=== PATIENT | female | born 1965 | race Caucasian/White ===

== ENCOUNTER 2025-07-04 21:39 | Emergency (ER) | payer MEDICAID ==
[~2025-07-04] VITALS: Ht 165.1 cm; Wt 70.0 kg
[2025-07-04 21:41] VITALS: O2SAT 97
[2025-07-04 23:11] LABS: BASOPHILS % 0.6 % (0.0-2.0); EOSINOPHILS % 1.3 % (0.0-5.0); HEMATOCRIT. 28.2 % (36.0-48.0); HEMOGLOBIN. 9.4 g/dL (12.0-16.0); LYMPHOCYTES % 31.5 % (20.0-50.0); MEAN PLATELET VOLUME 8.6 fl (7.4-10.4); MONOCYTES % 4.2 % (2.0-8.0); NEUTROPHILS % 62.4 % (40.0-76.0); PLATELET 174 x1000/uL (130-400); RED BLOOD CELL COUNT 2.78 mill/uL (4.2-5.4); RED CELL DISTRIBUTION WIDTH 13.7 % (11.6-14.6)
[2025-07-04 23:21] LABS: CREATININE 3.0 mg/dL (0.6-1.0)
[2025-07-04 23:22] LABS: ETHANOL BLOOD 92 mg/dL (<10); UREA NITROGEN BLOOD 31 mg/dL (9-23)
[2025-07-04 23:23] LABS: ASPARTATE AMINOTRANSFERASE 24 IU/L (<34)
[2025-07-04 23:24] LABS: BILIRUBIN DIRECT < 0.1 mg/dL (<=3.0); BILIRUBIN TOTAL 0.2 mg/dL (0.1-1.0); PROTEIN TOTAL 5.8 g/dL (6.0-8.3); TROPONIN I HIGH SENSITIVITY 36 ng/L (3.0-34)
[2025-07-05] MEDS ORDERED: HYDROCODONE/ACETAMINOPHEN 5/325MG TABLET PO PRN (02:30)
[2025-07-05] MEDS ORDERED: ZOLPIDEM TARTRATE 5MG TABLET PO PRN (02:30)
[2025-07-05] MEDS ORDERED: MAGNESIUM/ALUMINUM HYDROXIDE/SIMETHICONE 30ML UDC PO PRN (02:30)
[2025-07-05] MEDS ORDERED: ONDANSETRON HCL 4MG/2ML INJ IV PRN (02:30)
[2025-07-05] MEDS ORDERED: ACETAMINOPHEN 325MG TABLET PO PRN (02:30)
[2025-07-05] MEDS ORDERED: CLONIDINE 0.1MG TABLET PO PRN (02:30)
[2025-07-05] MEDS: SODIUM CHLORIDE 0.9% 1,000 ML IV SCH (03:13)
[2025-07-05] MEDS: MORPHINE SULFATE 2 MG/ML INJ (NOT FOR IM USE) IV PRN (03:27)
[2025-07-05 03:29] VITALS: BP 118/68; PULSE 71; RESP 16; TEMP 37.4; O2SAT 99
[2025-07-05] MEDS ORDERED: ENOXAPARIN 30MG/0.3ML SYR SUBCUT SCH (09:00)
[2025-07-05] MEDS ORDERED: PANTOPRAZOLE SODIUM 40 MG/VIAL IV SCH (09:00)
== END 2025-07-05 04:25 | disposition short-term general hospital (02) ==
LOC: ER 21:39 → CMPBEDREQ 07-06 08:56
DX: N19 Unspecified kidney failure (principal); E87.20 Acidosis, unspecified; I48.91 Unspecified atrial fibrillation; Z98.890 Other specified postprocedural states
CPT/HCPCS: 80076; 80048; 80320; 83735; 85025; 86850; 86900; 86901; 84484; 36415; 71045; 93005; 99285; 96361; 96374; J2270; G0480